=== PATIENT | female | born 2000 | race Caucasian/White ===

== ENCOUNTER → 2021-09-16 09:38 | Outpatient (BNVA) | payer MEDICAID, SELFPAY | PROVIDERS: Family Provider Nurse Practitioner Family; PCP Nurse Practitioner Family; Visit Provider Nurse Practitioner Family | DX: E78.5 Hyperlipidemia, unspecified (principal); N91.2 Amenorrhea, unspecified; R07.89 Other chest pain | CPT/HCPCS: 81025 ==

== ENCOUNTER 2022-04-08 22:35 | Outpatient (CLI) | payer MEDICAID, SELFPAY ==
[2022-04-08] VITALS (17 sets, daily range): BP systolic 87–106; BP diastolic 57–64; PULSE 82–97; RESP 17; O2SAT 96–98; BMI 24.5
--- NOTE | 2022-04-08 23:39 | PC.NURSE ---
This nurse questioned pt about edema in feet and pt stated the edema was worse earlier but is gone now. This nurse palpated bilateral lower extremities and noted no edema. Pt reported elevated HR at home and this nurse stated to pt HR stable at this time and SPO2 monitor placed on pt. PT stated she thought her BP was high at home because when she would get up and move around, she would get dizzy, light headed, and have tunnel vision. This nurse stated pt has normal BP readings but BP is on the lower side of normal. Nurse educated pt on orthostatic hypotension and how to move from laying to standing to help prevent dizziness. Nurse also educated pt on increasing fluid intake and eating a healthy diet to prevent low blood sugar which could also cause the dizziness and lightheadedness. Pt verbalized understanding.
== END 2022-04-08 23:58 | disposition home or self-care (01) ==
LOC: OPOB 22:43 → OBGYN 22:43
PROVIDERS: Family Provider Nurse Practitioner Family; PCP Nurse Practitioner Family; Visit Provider Obstetrics & Gynecology
DX: R60.9 Edema, unspecified (principal); Z3A.00 Weeks of gestation of pregnancy not specified; O16.9 Unspecified maternal hypertension, unspecified trimester
CPT/HCPCS: 59025; 99211